=== PATIENT | male | born 1950 | race Caucasian/White ===

== ENCOUNTER 2016-08-05 05:07 | Emergency (ER) | payer BC, MEDICARE ==
[~2016-08-05] VITALS: Ht 167.6 cm; Wt 102.1 kg
[~2016-08-05 05:07] MED LIST: ASPI-558 PO; FINA5TAB40 PO; METF-47 PO; TADA5TAB2 PO
[2016-08-05 05:10] VITALS: Ht 167.6 cm; Wt 102.1 kg
--- OUTSIDE RECORDS SUMMARY | 2016-08-05 05:12 | XMS REPORT | Continuity of Care Document ---
Author Author [facility] Organization [facility] Address Unknown Phone Unavailable Allergies Active Description Code Type Severity Reaction Onset Reported/Identified Relationship to Patient Clinical Status Yes No Known Medication Allergies NKMA N/A N/A 03/26/2014 Medications Problems Procedures Results Encounters ACCT No. Visit Date/Time Discharge Status Pt. Type Provider Facility Loc./Unit Complaint [id number] 02/07/2016 10:01:00 2015 23:59:00 DIS Outpatient Terry Ibarra [facility] [place] 6 MO RCK [id number] 08/09/2015 09:50:00 2015 23:59:00 DIS Outpatient Terry Ibarra [facility] [place] BPH [id number] 07/29/2015 09:27:00 2015 23:59:00 DIS Outpatient Michael Luibn [facility] BLOOD IN URINE IC ON 3..16 CDV DM [id number] 07/22/2015 18:18:00 2015 23:59:00 DIS Outpatient Zack Gutierrez [facility] POSS UTI [id number] 03/04/2015 12:56:00 2014 23:59:00 DIS Outpatient Michael Lubin [facility] CDM-DM [id number] 03/29/2014 10:00:00 2013 23:59:59 CLS Outpatient Michael Lubin [facility] CDM DM [id number] 10/02/2014 14:06:00 Document Registration
--- OUTSIDE RECORDS SUMMARY | 2016-08-05 05:13 | XMS REPORT | Referral Summary ---
Author Author [facility] Organization [facility] Address Unknown Phone Unavailable Care Team Providers Care Cell Geneticist Name Role Phone Mckenziejacky Michael Primary Care Physician [phone] Encounter VC Date(s): 10/02/14 - 10/02/14 [facility] [address] [place] [address] [place] [address]- Discharge Disposition: 01-Home or Self Care Attending Physician: Osei Segovia JR, MD Admitting Physician: Osei Segovia JR, MD Vital Signs No data available for this section Problem List Condition Effective Dates Status Health Status Informant Allergic Active rhinitis(Confirmed) Diabetes mellitus, Active type 2(Confirmed) Prostatitis(Confirme Active d) Allergies, Adverse Reactions, Alerts No Known Medication Allergies Medications Cialis 5 mg oral tablet 5 mg 1 tabs, Oral, Daily, as needed for erectile dysfunction, # 30 tabs, 0 Refill(s), Pharmacy: [facility], 1 tabs Oral Daily,PRN:as needed for erectile dysfunction Start Date: 03/04/15 Status: Ordered finasteride 5 mg oral tablet 1 tabs, Oral, Daily, # 90 tabs, 2 Refill(s), [facility], 1 tabs Oral Daily,x90 days Start Date: 08/14/14 Stop Date: 05/11/15 Status: Ordered Glucometer (DME) DME Item Blood Glucose Monitoring Kit use to test blood sugar 4 times every day for diabetes treated with insulin 250.00, QID, Supply Start Date: 03/26/14 Status: Ordered Glucometer Lancets (DME) DME Item Lancets, Ultra Thin every day., Supply Start Date: 03/26/14 Status: Ordered Glucometer strips (DME) DME Item Accu-Chek Ira Plus Strips test blood sugar daily and as needed for diabetes E11.9, See Instructions, Daily, # 1 Each, 11 Refill(s), Pharmacy: [facility], Accu-Chek Ira Plus Strips; test blood sugar daily and as needed for... Start Date: 02/05/15 Status: Ordered metFORMIN 500 mg oral tablet 1 tabs, Oral, With Breakfast, # 90 tabs, 2 Refill(s), Pharmacy: [facility], 1 tabs Oral With Breakfast,x90 days Start Date: 08/14/14 Stop Date: 05/11/15 Status: Ordered Results No data available for this section Immunizations Vaccine Date Refusal Reason tetanus/diphth/pertuss (Tdap) adult/adol 03/27/13 influenza virus vaccine, inactivated 03/04/15 influenza virus vaccine, inactivated1 03/19/14 influenza virus vaccine, live 02/28/13 pneumococcal 13-valent conjugate vaccine 03/29/14 1Result Comment: [03/19/2014] see scanned document Procedures Procedure Date Related Diagnosis Body Site Colon cancer screening1 2013 prostrate biopsy 1Colonoscopy, benign leiomyoma, diverticula, repeat in 10 years. Social History Social History Type Response Smoking Status Former smoker; Type: Cigarettes Assessment and Plan No data available for this section
--- OUTSIDE RECORDS SUMMARY | 2016-08-05 05:13 | XMS REPORT | Referral Summary ---
Author Author [facility] Organization [facility] Address Unknown Phone Unavailable Care Team Providers Care Social Services Designee Name Role Phone Michael Lubin Primary Care Physician [phone] Encounter VC Date(s): 07/29/15 - 07/29/15 [facility] [address] [place] [address]- Discharge Diagnosis: Acute lower urinary tract infection Discharge Diagnosis: Erectile dysfunction Discharge Diagnosis: Hematuria Discharge Disposition: -Home or Self Care Attending Physician: Michael Lubin DO Admitting Physician: Michael Lubin DO Vital Signs Most recent to 1 oldest [Reference Range]: Peripheral Pulse 66 bpm Rate [60-100 bpm] (07/29/15 9:38 AM) Blood Pressure 135/60 mmHg [90-140/60-90 mmHg] (07/29/15 9:38 AM) SpO2 98 % (07/29/15 9:38 AM) Problem List Condition Effective Dates Status Health [...] erectile dysfunction Start Date: 03/04/15 Status: Ordered Cipro 500 mg oral tablet 500 mg 1 tabs, Oral, q12hr, X 14 days, # 28 tabs, 0 Refill(s), Pharmacy: [facility] #[id number], 1 tabs Oral q12hr,x14 days Start Date: 07/22/15 Stop Date: 08/05/15 Status: Ordered finasteride 5 mg oral tablet 5 mg 1 tabs, Oral, Daily, # 90 tabs, 1 Refill(s), Pharmacy: [facility], 1 tabs Oral Daily,x90 days Start Date: 07/18/15 Stop Date: 01/14/16 Status: Ordered Glucometer (DME) DME Item Blood [...] Daily, # 1 Each, 11 Refill(s), Pharmacy: [facility], Accu-Chek Ira Plus Strips; test blood sugar daily and as needed for... Start Date: 02/05/15 Status: Ordered metFORMIN 500 mg oral tablet 500 mg 1 tabs, Oral, With Breakfast, PT NEEDS APPT FOR DIABETES, # 90 tabs, 0 Refill(s), Pharmacy: [facility], 1 tabs Oral With Breakfast,x90 days,Instr:PT NEEDS APPT FOR DIABETES Start Date: 07/18/15 Stop Date: 10/16/15 Status: Ordered Results No data available for [...] Former smoker; Type: Cigarettes Assessment and Plan Extracted from: Title: Office Visit Note Author: Michael Lubin DO Date: 07/29/15 Assessment/Plan Acute cystitis with hematuria, Acute lower urinary tract infection 1. Continue with Cipro for urinary tract infection. 2. Repeat UA after the treatment with Cipro. 3. Follow-up if worsening presentation. 1. As above. Ordered: Office Visit Level 3 Est 64584 Combined arterial insufficiency and corporo-venous occlusive erectile dysfunction, Erectile dysfunction 1. We will refer him to the urologist for farther evaluation and recommendations. 1. As above. Ordered: Office Visit Level 3 Est 94873 Hematuria, Hematuria, unspecified 1. As above. Ordered: Office Visit Level 3 Est 90212 History of BPH 1. Continue with finasteride 5 mg daily. 2. Referral to urologist for further recommendation.
--- OUTSIDE RECORDS SUMMARY | 2016-08-05 05:13 | XMS REPORT | Referral Summary ---
Author Author [facility] Organization [facility] Address Unknown Phone Unavailable Care Team Providers Care Spray Booth Operator Name Role Phone Michael Lubin Primary Care Physician [phone] Encounter Date(s): 03/04/15 - 03/04/15 [facility], [address] [place] [address]- Discharge Diagnosis: BPH (benign prostatic hyperplasia) Discharge Diagnosis: Diabetes mellitus Discharge Diagnosis: Visit for well man health check Discharge Diagnosis: Erectile dysfunction Discharge Disposition: 01-Home or Self Care Attending Physician: Michael Lubin DO Admitting Physician: Michael Lubin DO Vital Signs Most recent to 1 oldest [Reference Range]: Temperature Tympanic 34.8 degC [36.6-38.1 degC] *LOW* (03/04/15 1:08 PM) Peripheral Pulse 80 bpm Rate [60-100 bpm] (03/04/15 1:08 PM) Blood Pressure 118/72 mmHg [90-140/60-90 mmHg] (03/04/15 1:08 PM) Problem List Condition Effective Dates Status Health [...] Daily, # 90 tabs, 2 Refill(s), [facility], 1 tabs Oral Daily,x90 [...] Daily, # 1 Each, 11 Refill(s), Pharmacy: [facility], Accu-Chek Ira Plus Strips; test blood sugar daily and as needed for... Start Date: 02/05/15 Status: Ordered metFORMIN 500 mg oral tablet 1 tabs, Oral, With Breakfast, # 90 tabs, 2 Refill(s), Pharmacy: [facility], 1 tabs Oral With Breakfast,x90 days [...] Date Related Diagnosis Body Site Colon cancer screening2013 prostrate biopsy 1Colonoscopy, benign leiomyoma, diverticula, repeat in 10 years. Social History Social History Type Response Smoking Status Former smoker; Type: Cigarettes Assessment and Plan Extracted from: Title: WME and Diabetes Author: Michael Lubin DO Date: 03/04/15 Assessment/Plan BPH (benign prostatic hyperplasia) Pathophysiology of this presentation discussed in detail with the patient to include recent literature on PSA and digital rectal exam for prostate cancer screening. All questions were answered. 1. I think it's reasonable to try him off of the finasteride since it's affecting his sexual function significantly. 2. We will try him on Cialis 5 mg daily to treat BPH and ED. If the insurance covers this medication then we will continue him on this long-term. 3. We will check his PSA next year or if he becomes symptomatic since we are stopping the finasteride. If his PSA value increases then we will stressed the importance of being on the finasteride. 4. Patient understands the risk stratification as discussed above. Ordered: tadalafil, 5 mg 1 tabs, Oral, Daily, as needed for erectile dysfunction, # 30 tabs, 0 Refill(s), Pharmacy: [facility], 1 tabs Oral Daily,PRN: as needed for erectile dysfunction Periodic Comp Preventive Med 65+ years Est 52604 Diabetes mellitus 1. A1c is pending. 2. Continue metformin as previous. If his A1c is not at goal then we plan on increasing his regimen. 3. Follow up every 6 months for diabetes management. Ordered: Hemoglobin A1c Periodic Comp Preventive Med 65+ years Est 87963 Erectile dysfunction 1. Discontinue Viagra since it's not helping. 2. Start on Cialis 5 mg daily. 3. Stops finasteride as described above. Ordered: Periodic Comp Preventive Med 65+ years Est 90431 Immunization due 1. Flu shot given today. Ordered: Periodic Comp Preventive Med 65+ years Est 59031 Visit for well man health check 1. This is a well-developed well-nourished 64-year-old gentleman in good health. 2. Recommend yearly well male exam. 3. Continue with healthy lifestyle changes and daily exercise. 4. Weight loss recommended.
--- OUTSIDE RECORDS SUMMARY | 2016-08-05 05:13 | XMS REPORT | Referral Summary ---
Author Author [facility] Organization [facility] Address Unknown Phone Unavailable Care Team Providers Care Machine Feeder Floorperson Name Role Phone Michael Lubin Primary Care Physician [phone] Encounter Date(s): 08/09/15 - 08/09/15 [facility] [address] [place] [address] Discharge Diagnosis: Erectile dysfunction Discharge Diagnosis: BPH with obstruction/lower urinary tract symptoms Discharge Disposition: 01-Home or Self Care Attending Physician: Terry Ibarra MD Admitting Physician: Terry Ibarra MD Vital Signs Most recent to 1 oldest [Reference Range]: Blood Pressure 124/78 mmHg [90-140/60-90 mmHg] (08/09/15 9:58 AM) Problem List Condition Effective Dates Status Health Status Informant Allergic Active rhinitis(Confirmed) Diabetes mellitus, Active type 2(Confirmed) Prostatitis(Confirme Active d) Allergies, Adverse Reactions, Alerts No Known Medication Allergies Medications Glucometer (DME) DME Item Blood Glucose Monitoring [...] DIABETES, # 90 tabs, 0 Refill(s), Pharmacy: [facility], 1 tabs Oral With Breakfast,x90 days,Instr:PT NEEDS APPT FOR DIABETES Start Date: 07/18/15 Stop Date: 10/16/15 Status: Ordered sildenafil 100 mg oral tablet 100 mg 1 tabs, Oral, Daily, as needed for erectile dysfunction, # 5 tabs, 5 Refill(s), Pharmacy: [facility] #[id number], 1 tabs Oral Daily,x5 days,PRN:as needed for erectile dysfunction Start Date: 08/09/15 Stop Date: 09/08/15 Status: Ordered Results No data available for [...] Extracted from: Title: Office Visit Note Author: Terry Ibarra MD Date: 08/09/15 Assessment/Plan BPH with obstruction/lower urinary tract symptoms I discussed the option of starting an alpha-jony. He would prefer tonottake any medicationsas he has no bothersome symptoms. Erectile dysfunction Advised him to stop finasteride. Discussed options for ED includingpills, Vera, injections and pump. He would like to try pills. I gave him samples of Viagra. Advised him to take it one hour before intercourse on an empty stomach with sexual stimulation. Discussed the side effects. He'll follow up with me in 6 monthsor sooner if he notices any worsening of his urinary symptoms. Orders: sildenafil, 100 mg 1 tabs, Oral, Daily, as needed for erectile dysfunction, # 5 tabs, 5 Refill(s), Pharmacy: [facility] #[id number], 1 tabs Oral Daily,x5 days,PRN:as needed for erectile dysfunction
--- OUTSIDE RECORDS SUMMARY | 2016-08-05 05:13 | XMS REPORT | Referral Summary ---
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 Discharge Disposition: 01-Home or Self Care Attending Physician: Terry Ibarra MD Admitting Physician: Terry Ibarra MD Vital Signs Most recent to 1 oldest [Reference Range]: Peripheral Pulse 64 bpm Rate [60-100 bpm] (02/07/16 10:07 AM) Blood Pressure 128/76 mmHg [90-140/60-90 mmHg] (02/07/16 10:07 AM) Problem List Condition Effective Dates Status [...] Status: Ordered metFORMIN 500 mg oral tablet See Instructions, TAKE 1 TABLET WITH BREAKFAST (PATIENT NEEDS APPOINTMENT FOR DIABETES), # 90 tabs, eRx: [facility], TAKE 1 TABLET WITH BREAKFAST (PATIENT NEEDS APPOINTMENT FOR DIABETES) Start Date: 12/10/15 Status: Ordered sildenafil 100 mg oral tablet 100 mg 1 tabs, Oral, Daily, as needed for erectile dysfunction, # 5 tabs, 0 Refill(s), Pharmacy: [facility] #[id number], 1 tabs Oral Daily,x30 days,PRN: as needed for erectile dysfunction Start Date: 11/04/15 Stop Date: 12/04/15 Status: Ordered Results No data available for [...] Visit Note Author: Terry Ibarra MD Date: 02/07/16 Assessment/Plan BPH (benign prostatic hypertrophy) Follow-up in 6 months with a PSAand rectal exam. ED (erectile dysfunction) of organic origin We will continue the Viagra prescription
--- OUTSIDE RECORDS SUMMARY | 2016-08-05 05:13 | XMS REPORT | Referral Summary ---
Author Author [facility] Organization [facility] Address Unknown Phone Unavailable Care Team Providers Care Middle School Resource Teacher Name Role Phone Michael Lubin Primary Care Physician [phone] Encounter VC Date(s): 07/22/15 - 07/22/15 [facility], [address] [place] [address]- Discharge Diagnosis: Acute UTI Discharge Disposition: 01-Home or Self Care Attending Physician: Zack Gutierrez PA-C Admitting Physician: Zack Gutierrez PA-C Vital Signs Most recent to 1 oldest [Reference Range]: Temperature Tympanic 37.1 degC [36.6-38.1 degC] (07/22/15 6:29 PM) Peripheral Pulse 62 bpm Rate [60-100 bpm] (07/22/15 6:29 PM) Respiratory Rate 17 br/min [14-20 br/min] (07/22/15 6:29 PM) Blood Pressure 122/68 mmHg [90-140/60-90 mmHg] (07/22/15 6:29 PM) SpO2 98 % (07/22/15 6:29 PM) Problem List Condition Effective Dates Status [...] days, # 28 tabs, 0 Refill(s), Pharmacy: [facility] #[id number], 1 tabs Oral q12hr,x14 days Start Date: 07/22/15 Stop Date: 08/05/15 Status: Ordered finasteride 5 mg oral tablet 5 mg 1 tabs, Oral, Daily, # 90 tabs, 1 Refill(s), Pharmacy: [facility], 1 tabs Oral Daily,x90 days [...] Daily, # 1 Each, 11 Refill(s), Pharmacy: [facility], Accu-Chek Ira Plus Strips; test blood sugar daily and as needed for... Start Date: 02/05/15 Status: Ordered metFORMIN 500 mg oral tablet 500 mg 1 tabs, Oral, With Breakfast, PT NEEDS APPT FOR DIABETES, # 90 tabs, 0 Refill(s), Pharmacy: [facility], 1 tabs Oral With Breakfast,x90 [...]
[2016-08-05] MEDS ORDERED: NORMAL SALINE 1,000 ML IV ONE (05:30)
[2016-08-05] MEDS ORDERED: KETOROLAC 30mg/ml INJECTION IV ONE (05:30)
[2016-08-05] MEDS ORDERED: ONDANSETRON 4mg/2ml INJECTION IV ONE (05:30)
--- NOTE | 2016-08-05 05:31 | ERPDOC ---
Departure Disposition Decision Date: Aug 05, 2016 Disposition Decision Time: 07:56 (ROCHELLE LANDRUM MD) Disposition: 01 DISCHARGED HOME, SELF-CARE Impression Impression (LIANG STEELE MD) Impression: Primary Impression: Nausea & vomiting Additional Impression: Dizziness Severity: Moderate (ROCHELLE LANDRUM MD) Condition: Improved Seen By: Physician only (ROCHELLE LANDRUM MD) Referrals: LILY MANZO MD (Family) Patient Instructions: Acute Nausea and Vomiting (ED) Problems/Meds/Labs Reviewed?: Yes Medications reviewed and manag: Yes (ROCHELLE LANDRUM MD) Additional Instructions: Zofran 4 mg every 6 hours as needed for nausea. Breathitt, gentle diet. If symptoms worsen, please return for reevaluation. Follow up care ordered?: Yes Mental Status: Alert, Oriented (ROCHELLE LANDRUM MD) Scripts Ondansetron HCl (Zofran) 4 Mg Tablet 4 MG PO Q6H for NAUSEA, #30 TAB Prov: ROCHELLE LANDRUM MD 08/05/16 HPI - Abdominal Pain General Chief Complaint: Nausea,Vomiting,Diarrhea Stated Complaint: HIGH BS,NAUSEA,FREY,ABD PAIN Time Seen by Provider: 05:09 Source: patient, family History/Exam Limitations: no limitations (LIANG STEELE MD) Time Seen by Provider: 06:04 (ROCHELLE LANDRUM MD) HPI - Abdominal Pain Initial Comments 0030 this morning, the patient developed dizziness, lightheadedness, mild headache, and nausea with a severe queasy feeling. This is relatively new for the patient, and he was quite disturbed by this. Patient had several episodes of dry heaves, and since he has never experienced this before he couldn't hold his symptoms and found that they could be signs of a heart attack. In addition the patient is a qlm-fegmfik-cxrlgathi diabetic, checked his blood sugar tonight , and found it to be elevated 198, higher than is ever seen it. Occurred At: home Onset: Rapid Duration: 4-6 hrs Quality: aching, cramping Location: epigastric Radiation: no radiation Associated Symptoms: diaphoresis, nausea/vomiting, weakness, DENIES: back pain , chest pain, fatigue, fever/chills, headache, heartburn, rash, shortness of breath, swelling/mass in abdomen, syncope Hx of Similar Symptoms: No (LIANG STEELE MD) Allergies: Coded Allergies: No Known Drug Allergies (Verified Allergy, Unknown, 08/05/16) Past History Past Medical History Metabolic: diabetes Male: prostatitis (LIANG STEELE MD) Surgical History Denies Surgeries (LIANG STEELE MD) Vaccines Hx Influenza Vaccination: Yes (FEB 2013) Hx Pneumococcal Vaccination: Yes (LAST TWO YEARS) (LIANG STEELE MD) Social History Smoking Status: Never smoker Does patient use chewing tobac: No Second Hand Exposure: No Substance Use Type: does not use (LIANG STEELE MD) Record Review Pertinent history updated: Yes (LIANG STEELE MD) Review of Systems Constitutional Constitutional: dizziness, fatigue, DENIES: appetite decrease, appetite increase, chills, fever, weakness (LIANG STEELE MD) ENMT Ears: DENIES: pain Hearing: DENIES: hearing loss, tinnitus Balance: DENIES: vertigo Mouth/Throat: DENIES: change in swallowing, change in voice, hoarsness, painful swallowing, sore throat (LIANG STEELE MD) Cardiovascular Cardiac: DENIES: chest pain, dyspnea on exertion Rhythm/Rate: DENIES: irregular beat, palpitations, tachycardia Vascular: DENIES: pedal edema (LIANG STEELE MD) Pulmonary Respiratory: DENIES: cough, dyspnea, pleuritic chest pain (LIANG STEELE MD) GI Upper Abdomen: nausea, pain, vomiting, DENIES: dysphagia, food intolerances, heartburn/indigestion, hematemesis Lower Abdomen: DENIES: blood in stool, jigar-colored stools, constipation, diarrhea, melena, pain, painful BM (LIANG STEELE MD) Musculoskeletal General: DENIES: cramps, joint pain, joint swelling, pain, weakness (LIANG STEELE MD) Integumentary Skin: DENIES: rash, sores (LIANG STEELE MD) Neurological General: DENIES: headache, numbness, tingling, vertigo, weakness (LIANG STEELE MD) Psychiatric Psychiatric: DENIES: anxiety, depression, nervousness (LIANG STEELE MD) Physical Exam General General Nourishment: well nourished, well developed, appears stated age General Body Habitus: well groomed (LIANG STEELE MD) Vitals and Pain First Documented Vital Signs Date Time Temp Pulse Resp B/P Pulse Ox O2 Delivery O2 Flow Rate FiO2 08/05/16 05:10 98.0 58 20 193/85 97 Room Air (ROCHELLE LANDRUM MD) Vitals and Pain Weight: Kilograms: 102.100 Height (feet): 5 Height (inches): 6.00 Triage Pain Scale: (LIANG STEELE MD) RN VS reviewed by Provider: Yes (LIANG STEELE MD) Normal Exams: Head: Normocephalic w/o trauma Eyes: Pupils are PERRLA w/ EOMI, No scleral icterus, irritation, or foreign bodies noted ENMT: No facial trauma, nasal exudates, pharyngeal erythema, or exudates are noted Neck: Full range of motion, without adenopathy, JVD, bruits or thyromegaly Chest/Resp: Clear all loving, with good airflow, and symmetry bilaterally CV: Regular rate and rhythm, without murmur or gallop, Pulses 2+ all extremities, capillary refill, <2 seconds all ext., no pedal edema noted Lymphatic: No lymphadenopathy, or lymphedema noted Musculoskeletal: No tenderness, or deformity noted, good range of motion, all extremities Integumentary: No rashes, hives, or bruising noted, hair and nails, without abnormality Neurologic: Patient is alert, and oriented, cranial nerves, motor/sensory/ cerebellar, exams w/o gross deficits, to observation Psychiatric: Patient exhibits, appropriate attention, emotion and affect (LIANG STEELE MD) Abdomen (brief) Abdominal Brief: FOUND: bowel normo active x4, soft, tender (moderate epigastric tenderness, reproduces the patient's symptoms), NOT FOUND: distended , hepatosplenomegaly (LIANG STEELE MD) Progress Results/Orders Orders Procedure Category Date Status Time Iv Lock (Ed Only) EDM 08/05/16 Transmitted 05:22 Cbc W/Auto LAB 08/05/16 Complete Diff-Reflex Manual Lipase LAB 08/05/16 Complete EKG EKG 08/05/16 Taken Troponin I W LAB 08/05/16 Complete Hemolysis Index Cmp - Comprehensive LAB 08/05/16 Complete Metabolic Normal Saline (Normal PHA 08/05/16 Complete Saline Iv) 05:30 Ketorolac (Toradol) PHA 08/05/16 Complete 05:30 Ondansetron Inj PHA 08/05/16 Complete (Zofran) 05:30 Promethazine PHA 08/05/16 Complete (Phenergan) 06:15 Lorazepam (Ativan) PHA 08/05/16 In Process 06:15 Ct Head W/O Contrast CT 08/05/16 Resulted 08:26 Abdomen Acute (Inc. RAD 08/05/16 Resulted Chest) 08:26 UA, LAB 08/05/16 Complete Dip&Micro(Complete) & 08:44 (ROCHELLE LANDRUM MD) Lab Results Laboratory Tests Test 08/05/16 05:50 08/05/16 08:44 White Blood Count 7.8T/MM3 Red Blood Count 4.59M/MM3 Hemoglobin 13.6GM/DL Hematocrit 39.1% Mean Corpuscular Volume 85.2UM3 Mean Corpuscular Hemoglobin 29.6UUG Mean Corpuscular Hemoglobin Concent 34.8GM/DL RDW Standard Deviation 39.8FL Platelet Count 211T/MM3 Mean Platelet Volume 9.9UM3 Immature Granulocyte % (Auto) 0.4% Neutrophils (%) (Auto) 76.8% Lymphocytes (%) (Auto) 17.0% Monocytes (%) (Auto) 4.7% Eosinophils (%) (Auto) 0.8% Basophils (%) (Auto) 0.3% Absolute Immature Granulocyte (auto 0.03T/MM3 Absolute Neutrophils (auto) 6.0T/MM3 Absolute Lymphocytes (auto) 1.3T/MM3 Absolute Monocytes (auto) 0.4T/MM3 Absolute Eosinophils (auto) 0.1T/MM3 Absolute Basophils (auto) 0.0T/MM3 Turbidity < 20 Sodium Level 141MEQ/L Potassium Level 4.1MEQ/L Chloride Level 105MEQ/L Carbon Dioxide Level 22MEQ/L Anion Gap 14MEQ/L Blood Urea Nitrogen 18.0MG/DL Creatinine 0.8MG/DL Glomerular Filtration Rate Calc 96 BUN/Creatinine Ratio 23RATIO Glucose Level 198MG/DL Calculated Osmolality 279MOSM/KG Calcium Level 9.0MG/DL Total Bilirubin 0.60MG/DL Icterus Index < 2 Aspartate Amino Transf (AST/SGOT) 24U/L Alanine Aminotransferase (ALT/SGPT) 34U/L Alkaline Phosphatase 89U/L Troponin I < 0.012ng/ml Total Protein 7.1G/DL Albumin 4.1G/DL Globulin 3.0G/DL Albumin/Globulin Ratio 1.4RATIO Lipase 14U/L Chemistry Specimen Hemolysis < 15 Urine Collection Type Voided-not cc-midstr Urine Color Yellow Urine Turbidity Clear Urine pH 6.0 Urine Specific Merritt 1.015 Urine Protein Negative Urine Glucose (UA) Negative Urine Ketones 1+ Urine Blood 1+ Urine Nitrite Negative Urine Bilirubin Negative Urine Urobilinogen 0.2EU/DL Urine Leukocyte Esterase Negative Urine RBC 3-5/HPF Urine WBC 0-1/HPF Urine Squamous Epithelial Cells 0-5 Urine Bacteria None seen Urine Culture Indicated Cult not indicated (ROCHELLE LANDRUM MD) Medications Current ED Medications Sodium Chloride (Normal Saline IV) 1,000 ml @ 0 mls/hr Q0M ONCE IV Last administered on 08/05/16 05:43; Start 08/05/16 at 05:30; Stop 08/05/16 at 05:31 ; Status DC Ketorolac Tromethamine (Toradol) 30 mg O ONCE IV Last administered on 05:47; Start 08/05/16 at 05:30; Stop 08/05/16 at 05:31; Status DC Ondansetron HCl (Zofran) 4 mg O ONCE IV Last administered on 08/05/16 05:44; Start 08/05/16 at 05:30; Stop 08/05/16 at 05:31; Status DC Promethazine HCl (Phenergan) 25 mg O ONCE IV Last administered on 08/05/16 06 :27; Start 08/05/16 at 06:15; Stop 08/05/16 at 06:25; Status DC Lorazepam (Ativan) 0.25 mg Q15MIN PRN IV AGITATION Last administered on 06:31; Start 08/05/16 at 06:15 (ROCHELLE LANDRUM MD) Progress Progress EKG shows normal sinus rhythm, slight bradycardia at 57, no significant any or infarction, no other ectopy CBC - CMP/L - Troponin - Patient given 1 L normal saline IV fluid bolus, Toradol 30 mg, Zofran 4 mg IV - (LIANG STEELE MD) Progress Labs are reviewed and appropriate, troponin is negative as is lipase. Patient required Phenergan 25 mg and Ativan 0.5 mg both given IV before nausea agitation resolved. At this time he is resting comfortably, his daughter is present and feels like he has improved dramatically. We did discuss the possibility of a cerebellar infarct causing the nausea and vomiting. I offered imaging, patient and daughter both feel like he is improved enough that they would like to hold off on imaging, I'm in agreement with this as well. We did discuss that he is well beyond any sort of 3 hour rosa and that if he does progress they're welcome to bring him back and we would plan to image him at that time if appropriate. Breathitt diet discussed. Patient was evaluated prior to discharge and had normal neuro exam. 10:35 AM. Patient was to be discharged and was ready to leave, he began vomiting again. The vomiting was very aggressive. Spoke with he and his daughter and elected to pursue CT head and abdominal x-ray. Both of returned normal. He was given more IV Zofran and vomiting stopped. He is now comfortable and ready to discharge. We discussed taking the Zofran every 6 hours scheduled for 2 days then going to as needed dosing so that we can hopefully keep this under control. I also gave them a prescription for Phenergan to be used as needed. If these are not working he continues to vomit used return to the ED for reevaluation as we may have something progressing that we did not see on this visit. We discussed this at length and they understand this. (ROCHELLE LANDRUM MD) LIANG STEELE MD Aug 05, 2016 05:31 ROCHELLE LANDRUM MD Aug 05, 2016 07:58
--- NOTE | 2016-08-05 05:40 | NUR ---
IVL IV LOCK STARTED ON FIRST ATTEMPT. UNABLE TO DRAW BLOOD. LAB CALLED FOR BLOOD WORK.
--- NOTE | 2016-08-05 05:43 | NUR ---
IV FLUIDS IV FLUID BOLUS STARTED.
--- NOTE | 2016-08-05 05:44 | NUR ---
ZOFRAN ZOFRAN GIVEN FOR NAUSEA AND DRY HEAVES.
--- NOTE | 2016-08-05 05:47 | NUR ---
TORADOL TORADOL GIVEN IV FOR HEADACHE AND UPPER ABD. PAIN.
--- NOTE | 2016-08-05 06:00 | NUR ---
VOMITING PT. VOMITED SMALL AMOUNT OF CLEAR LIQUING. DR. LANDRUM INFORMED PT. IS VOMITING AND THAT THE ZOFRAN DID NOT HELP.
[2016-08-05 06:01] LABS: BASOPHILS % (AUTO) 0.3 % (0-2); EOSINOPHILS # (AUTO) 0.1 T/MM3 (0-0.5); EOSINOPHILS % (AUTO) 0.8 % (0-4); HCT - HEMATOCRIT 39.1 % (41-53); HGB - HEMOGLOBIN 13.6 GM/DL (13.5-17.5); IMMATURE GRANULOCYTE # (AUTO) 0.03 T/MM3 (0.00-0.03); IMMATURE GRANULOCYTE % (AUTO) 0.4 % (0.0-0.5); LYMPHOCYTES # (AUTO) 1.3 T/MM3 (1-4.8); MEAN CORPUSCULAR HGB 29.6 UUG (26-34); MEAN CORPUSCULAR HGB CONC(MCHC 34.8 GM/DL (31-37); MEAN CORPUSCULAR VOLUME 85.2 UM3 (80-100); MEAN PLATELET VOLUME 9.9 UM3 (9.4-12.4); MONOCYTES # (AUTO) 0.4 T/MM3 (0-0.8); MONOCYTES % (AUTO) 4.7 % (0-9.0); NEUTROPHILS % (AUTO) 76.8 % (33-66); RED BLOOD COUNT 4.59 M/MM3 (4.50-5.90); WBC - WHITE BLOOD COUNT 7.8 T/MM3 (4.5-11.0)
--- OUTSIDE RECORDS SUMMARY | 2016-08-05 06:04 | XMS REPORT | Continuity of Care Document ---
Author Author [facility] Organization [facility] Address Unknown Phone Unavailable Allergies Active Description Code Type Severity Reaction Onset Reported/Identified Relationship to Patient Clinical Status Yes No Known Medication Allergies NKMA N/A N/A 03/26/2014 Medications Problems Procedures Results Encounters ACCT No. Visit Date/Time Discharge Status Pt. Type Provider Facility Loc./Unit Complaint [id number] 02/07/2016 10:01:00 2015 23:59:00 DIS Outpatient Terry Ibarra [facility] [place] 6 MO RCK [id number] 08/09/2015 09:50:00 2015 23:59:00 DIS Outpatient Terry Ibarra [facility] [place] BPH [id number] 07/29/2015 09:27:00 2015 23:59:00 DIS Outpatient Michael Lubin [facility] [place] BLOOD IN URINE IC ON 3..16 CDV DM [id number] 07/22/2015 18:18:00 2015 23:59:00 DIS Outpatient Zack Gutierrez [facility] [place] POSS UTI [id number] 03/04/2015 12:56:00 2014 23:59:00 DIS Outpatient Michael Lubin [facility] [place] CDM-DM [id number] 03/29/2014 10:00:00 2013 23:59:59 CLS Outpatient Michael Lubin [facility] [place] CDM DM [id number] 10/02/2014 14:06:00 Document Registration
--- NOTE | 2016-08-05 06:05 | NUR ---
REPORT REPORT GIVEN TO HARJIT LYNN RN AND CARE TURNED OVER TO HIM.
[2016-08-05 06:07] LABS: ALBUMIN 4.1 G/DL (3.5-5.0); ALBUMIN/GLOBULIN RATIO 1.4 RATIO (1.1-2.2); ALKALINE PHOSPHATASE 89 U/L (38-126); ALT (SGPT) 34 U/L (21-72); ANION GAP 14 MEQ/L (5-15); AST (SGOT) 24 U/L (17-59); BUN/CREATININE RATIO 23 RATIO (6-26); CHLORIDE 105 MEQ/L (98-107); CO2 - CARBON DIOXIDE 22 MEQ/L (22-30); CREATININE 0.8 MG/DL (0.8-1.5); GLOMERULAR FILTRATION RATE 96; GLUCOSE 198 MG/DL (75-110); LIPASE 14 U/L (23-300); POTASSIUM 4.1 MEQ/L (3.6-5); SODIUM 141 MEQ/L (134-144); TOTAL PROTEIN 7.1 G/DL (6.3-8.2)
--- NOTE | 2016-08-05 06:10 | NUR ---
REPORT REPORT RECEIVED AND CARE ASSUMED AT THIS TIME
[2016-08-05] MEDS ORDERED: PROMETHAZINE 25 MG INJECTION IV ONE (06:15)
[2016-08-05] MEDS ORDERED: LORAZEPAM 2 MG/ML INJECTION IV PRN (06:15)
[2016-08-05] MEDS ORDERED: OMEG300C (06:22)
--- NOTE | 2016-08-05 06:55 | NUR ---
STATUS PT REPORTS NAUSEA IS BETTER AFTER PHENERGAN AND ATIVAN. PT APPEARS DROWSY AT THIS TIME
[2016-08-05] MEDS ORDERED: ONDA4TAB4 PO (07:57)
--- NOTE | 2016-08-05 08:18 | NUR ---
ELIMINATION VOIDED 400CC CLEAR YELLOW URINE
--- NOTE | 2016-08-05 08:20 | NUR ---
STATUS ATTEMPTED TO DISMISSAL PT. PT CONTINUES TO HAVE HEADACHE AND ABD PAIN AND SAYS HE IS DIZZY STILL. FAMILY CONTINUES TO WANT TO TAKE PT HOME. DR LANDRUM NOTIFIED OF STATUS AND NEW ORDERS RECEIVED
--- NOTE | 2016-08-05 08:32 | NUR ---
RADIOLOGY PT TO RADIOLOGY PER CART
[2016-08-05 08:48] LABS: BLOOD, URINE 1+ (NEGATIVE); COLOR,URINE YELLOW (YELLOW); LEUKOCYTE ESTERASE ,URINE NEGATIVE (NEGATIVE); NITRITE,URINE NEGATIVE (NEGATIVE); UROBILINOGEN,URINE 0.2 EU/DL (NORMAL)
--- NOTE | 2016-08-05 08:52 | NUR ---
RADIOLOGY PT FROM RADIOLOGY PER CART
--- NOTE | 2016-08-05 08:54 | DI ---
Indication: ITS.REASON: HEADACHE AND VOMITING Procedure: CT HEAD W/O CONTRAST: Encounter: Initial Comparison: None Technique: Axial CT images through the head were performed without contrast. Iterative Reconstruction dose reducing technique was utilized. FINDINGS: The normal orozco-white matter differentiation is maintained. No intra-axial or extra-axial mass or hemorrhage seen. No mass effect or midline shift. The ventricles and cerebral sulci are normal in size, shape, and configuration without evidence of hydrocephalus. The basilar cisterns are patent. No extracalvarial scalp swelling. No acute calvarial fracture. The visualized paranasal sinuses and mastoid air cells are well-aerated. The visualized orbits and globes appear normal. IMPRESSION: No acute intracranial process identified by CT. .
[2016-08-05 08:57] LABS: WBC,URINE 0-1 /HPF (0-5)
[2016-08-05 08:58] LABS: BACTERIA,URINE NONE SEEN (NEGATIVE); SQUAMOUS EPITHELIAL CELL,UR 0-5
--- NOTE | 2016-08-05 09:06 | DI ---
Indication: ITS.REASON: ABD PAIN Procedure: ABDOMEN ACUTE (INC. CHEST): Encounter: Initial Comparison: None Technique: A PA view of the chest as well as upright and supine AP abdominal radiographs were obtained. Findings: Lungs and airways: Normal lung volumes. No focal airspace consolidation. Normal pulmonary vasculature. Pleura: No pleural effusion or pneumothorax. Heart and mediastinum: Aortic atherosclerosis. The heart is normal in size. Abdomen: Nonobstructive bowel gas pattern. Mild to moderate colonic gas and stool. No intraperitoneal free air. Osseous structures and soft tissues: No acute osseous abnormality is seen. Degenerative arthrosis of the right greater than left AC joints. Degenerative spondylosis of the thoracolumbar spine. Degenerative arthrosis of the hips. Impression: 1. Mild to moderate colonic gas and stool with a nonobstructive bowel gas pattern. 2. No acute cardiopulmonary process. .
--- NOTE | 2016-08-05 10:45 | NUR ---
IV IV DC'D WITH CATH INTACT
[2016-08-05 10:48] VITALS: BP 158/71; PULSE 56; RESP 16; TEMP 98; O2SAT 97
--- NOTE | 2016-08-05 10:48 | NUR ---
DISMISSAL DISMISSAL INSTRUCTIONS WITH RX FOR PHENERGAN AND ZOFRAN. NO FURTHER QUESTIONS AT THIS TIME. PT ASSISTED TO CAR PER WC WITHOUT INCIDENT
== END 2016-08-05 10:48 | disposition home or self-care (01) ==
LOC: ED 05:07
DX: R11.2 Nausea with vomiting, unspecified (principal); R42 Dizziness and giddiness; R51 Headache; R53.83 Other fatigue; R45.1 Restlessness and agitation
CPT/HCPCS: 36415; 70450; 74022; 80053; 81001; 83690; 84484; 85025; 93005; 96361; 96374; 96375; 99284; J1885; J2060; J2405; J2550; J7030